=== PATIENT | female | born 1985 | race Caucasian/White ===

== ENCOUNTER 2017-08-02 16:34 | Emergency (ER) | END 2017-08-02 19:13 | disposition left against medical advice (07) ==

== ENCOUNTER 2018-02-18 01:35 | Emergency (ER) | payer MEDICAID ==
[~2018-02-18 01:35] MED LIST: ALBU8.5H8 INH; BACTDS PO; CEPH-443 PO; IBUP-1542 PO; NAPH30DR3 OP; PROM6.25 PO
[2018-02-18] MEDS ORDERED: IBUP-1542 PO (02:22)
[2018-02-18] MEDS ORDERED: CEPH-443 PO (02:22)
[2018-02-18] MEDS ORDERED: SULF1TAB31 PO (02:22)
--- NOTE | 2018-02-18 02:24 | ERD ---
ER Documentation Chief Complaint Chief Complaint Skin lesions. HPI 32-year-old female presents with a 3-4-day history of some skin lesions which are painful. She has one on her left wrist one in the right hip and one on her right anterior knee area. She denies any fevers, vomiting, shortness of breath or chest pain. She has slight amount of discharge from the right knee lesion. ROS All systems reviewed and are negative except as per history of present illness. Medications Home Meds Active Scripts Cephalexin* (Keflex*) 500 Mg Capsule, 500 MG PO QID for 7 Days, CAP Prov:SAMMIE BOYLE MD 02/18/18 Sulfamethoxazole/Trimethoprim* (Bactrim Ds* Tablet) 1 Each Tablet, 1 TAB PO BID, #14 TAB Prov:SAMMIE BOYLE MD 02/18/18 Ibuprofen* (Motrin*) 600 Mg Tab, 600 MG PO Q6, #15 TAB Prov:SAMMIE BOYLE MD 02/18/18 Ibuprofen* (Motrin*) 600 Mg Tab, 600 MG PO Q6, #30 TAB Prov:SYMONE ROBERTSON PA-C 08/02/17 Cephalexin* (Keflex*) 500 Mg Capsule, 500 MG PO QID for 5 Days, CAP Prov:SYMONE ROBERTSON PA-C 08/02/17 Promethazine w/Codeine* (Phenergan w/Codeine* Syrup) 5 Ml Syrup, 5 ML PO Q4H PRN for COUGH, #120 ML Prov:SHARON TONEY PA-C 02/01/15 Albuterol Sulfate* (Proair HFA*) 8.5 Gm Hfa.aer.ad, 2 PUFF INH Q4H PRN for WHEEZING AND SOB, #1 INHALER Prov:SHARON TONEY PA-C 02/01/15 Sulfamethoxazole-Trimethoprim* (Bactrim* DS) 800-160 Mg Tab, 1 TAB PO BID for 10 Days, TAB Prov:MARCY LAM NP 11/28/14 Reported Medications Naphazoline Hcl* (Clear Eyes Redness Relief* 0.1%) 30 Ml Drops, 30 ML OP PRN 12/17/12 Allergies Allergies: Coded Allergies: No Known Drug Allergy (Verified Allergy, Unknown, 08/02/17) PMhx/Soc History of Surgery: Yes (C SECTION ) Anesthesia Reaction: No Hx Neurological Disorder: No Hx Respiratory Disorders: No Hx Cardiac Disorders: No Hx Psychiatric Problems: No Hx Miscellaneous Medical Probl: No Hx Alcohol Use: No Hx Substance Use: No Hx Tobacco Use: No FmHx Family History: No diabetes, No coronary disease, No other Physical Exam Physical Exam Const: No acute distress Head: Atraumatic Eyes: Normal Conjunctiva ENT: Normal External Ears, Nose and Mouth. Neck: Full range of motion. No meningismus. Resp: Clear to auscultation bilaterally Cardio: Regular rate and rhythm, no murmurs Abd: Soft, non tender, non distended. Normal bowel sounds Skin: No petechiae or rashes. Small pustule with surrounding redness on the left wrist and right hip approximately 1 cm. On the right knee there is approximately 2-3 cm area of redness with central pustule some slight drainage and fluctuance. Back: No midline or flank tenderness Ext: No cyanosis, or edema Neur: Awake and alert Psych: Normal Mood and Affect Results 24 hrs Current Medications Medications Dose Sig/Rosaura Start Time Status Last (Trade) Ordered Route PRN Stop Time Admin Dose Reason Admin 1 tab ONCE ONCE 02/18/18 Trimethoprim/ PO 02:30 02/18/18 02:31 Sulfamethoxaz ole (Bactrim (Ds)) Cephalexin 500 mg ONCE ONCE 02/18/18 (Keflex) PO 02:30 02/18/18 02:31 Procedures/MDM She presents with signs and symptoms of early or small abscesses on the left wrist, right hip and right knee consistent with MRSA. There is no signs of necrotizing fasciitis, sepsis, significant cellulitis or abscess to be drained today. Will treat with Bactrim, Keflex, instructions for warm compresses and 3D wound check for evaluation for incision and drainage. Should otherwise return sooner for worsening redness, the patient was stable with no new complaints dur ing the ER course. Clinically, there is no current evidence to suggest meningitis, sepsis, acute abdomen, pneumonia, stroke, acute coronary syndrome, pulmonary embolism, aortic dissection or any other emergent condition appearing to require further evaluation or hospitalization. Patient counseled regarding my diagnostic impression and care plan. Prior to discharge all questions a nswered. Pt agrees with treatment plan and understands strict return precautions. Pt is instructed to follow up with primary care provider within 24- 48 hours. Precautionary instructions provided including instructions to return to the ER if not improving or for any worsening or changing symptoms or concerns. Departure Diagnosis: Primary Impression: Abscess Condition: Stable Patient Instructions: Abscess, Antiobiotic Treatment Only Additional Instructions: Warm compresses at home. Recheck in 2-3 days for worsening redness and swelling for evaluation for incision and drainage. SAMMIE BOYLE MD Feb 18, 2018 02:24
[2018-02-18] MEDS ORDERED: CEPHALEXIN 500 MG CAP PO ONE (02:30)
[2018-02-18] MEDS ORDERED: TRIMETHOPRIM/SULFAMETHOX (DS) TAB PO ONE (02:30)
== END 2018-02-18 03:17 | disposition home or self-care (01) ==
LOC: FTE 01:35
DX: L02.414 Cutaneous abscess of left upper limb (principal)
CPT/HCPCS: Z7502; Z7610; 99283

== ENCOUNTER 2018-02-21 01:40 | Emergency (ER) | payer MEDICAID ==
[~2018-02-21] VITALS: Ht 152.4 cm; Wt 78.8 kg
[~2018-02-21 01:40] MED LIST changes: +SULF1TAB31 PO
[2018-02-21 01:45] VITALS: BP 124/64; PULSE 82; RESP 18; Ht 152.4 cm; Wt 78.8 kg
[2018-02-21] MEDS ORDERED: MUPI22OI2 TOP (02:13)
[2018-02-21] MEDS ORDERED: CLIN300C10 PO (02:13)
--- NOTE | 2018-02-21 02:23 | ERD ---
ER Documentation Chief Complaint Chief Complaint wound recheck on her R lower leg HPI 32-year-old female presenting for wound check to right lower leg. Patient was seen here a few days ago and given antibiotics. She does not have an I&D done at the time. She states that today the wound open and began draining fluid. She denies any fevers. Denies any severe pain. Denies IV drug use. Denies other medical problems. NKDA. Surgical history denies. Social history denies ROS All systems reviewed and are negative except as per history of present illness. Medications Home Meds Active Scripts Mupirocin* (Bactroban*) 2% -22 Gram Oint...g., 1 APPLIC TOP BID for 7 Days, EA Prov:FAMILIA PEREZ PA-C 02/21/18 Clindamycin Hcl* (Clindamycin Hcl*) 300 Mg Capsule, 300 MG PO TID for 10 Days, CAP Prov:FAMILIA PEREZ PA-C 02/21/18 Cephalexin* (Keflex*) 500 Mg Capsule, 500 MG PO QID for 7 Days, CAP Prov:SAMMIE BOYLE MD 02/18/18 Sulfamethoxazole/Trimethoprim* (Bactrim Ds* Tablet) 1 Each Tablet, 1 TAB PO BID, #14 TAB Prov:SAMMIE BOYLE MD 02/18/18 Ibuprofen* (Motrin*) 600 Mg Tab, 600 MG PO Q6, #15 TAB Prov:SAMMIE BOYLE MD 02/18/18 Ibuprofen* (Motrin*) 600 Mg Tab, 600 MG PO Q6, #30 TAB Prov:SYMONE ROBERTSON PA-C 08/02/17 Cephalexin* (Keflex*) 500 Mg Capsule, 500 MG PO QID for 5 Days, CAP Prov:SYMONE ROBERTSON PA-C 08/02/17 Promethazine w/Codeine* (Phenergan w/Codeine* Syrup) 5 Ml Syrup, 5 ML PO Q4H PRN for COUGH, #120 ML Prov:SHARON TONEY PA-C 02/01/15 Albuterol Sulfate* (Proair HFA*) 8.5 Gm Hfa.aer.ad, 2 PUFF INH Q4H PRN for WHEEZING AND SOB, #1 INHALER Prov:MICHELLESHARON Mejia Jaswinder MALDONADO 02/01/15 Sulfamethoxazole-Trimethoprim* (Bactrim* DS) 800-160 Mg Tab, 1 TAB PO BID for 10 Days, TAB Prov:GERMAINCARRIEMARCY Kilpatrick NP 11/28/14 Reported Medications Naphazoline Hcl* (Clear Eyes Redness Relief* 0.1%) 30 Ml Drops, 30 ML OP PRN 12/17/12 Allergies Allergies: Coded Allergies: No Known Drug Allergy (Verified Allergy, Unknown, 08/02/17) PMhx/Soc History of Surgery: Yes (C SECTION ) Anesthesia Reaction: No Hx Neurological Disorder: No Hx Respiratory Disorders: No Hx Cardiac Disorders: No Hx Psychiatric Problems: No Hx Miscellaneous Medical Probl: No Hx Alcohol Use: No Hx Substance Use: No Hx Tobacco Use: No FmHx Family History: No diabetes, No coronary disease, No other Physical Exam Vitals Vital Signs Date Temp Pulse Resp B/P (MAP) Pulse Ox O2 O2 Flow FiO2 Time Delivery Rate 02/21/18 98.1 82 18 124/64 98 01:45 (84) Physical Exam GENERAL: The patient is well-appearing, well-nourished, in no acute distress CHEST: Clear to auscultation bilaterally. There are no rales, wheezes or rhonchi. HEART: Regular rate and rhythm. No murmurs, clicks, rubs or gallops. No S3 or S4. EXTREMITIES: Equal pulses bilaterally. There is no peripheral clubbing, cyanosis or edema. No focal swelling or erythema. Full range of motion. Grossly neurovascularly intact. NEUROLOGIC: Alert and oriented. Motor strength in all 4 extremities with 5 out of 5 strength. SKIN: Draining open abscess noted to right curry. No lymphatic streaking. Mild surrounding erythema. No fluctuance. Procedures/MDM ER course: Site cleaned and Xeroform dressing applied. MDM: 32-year-old female presenting with cellulitis. Patient has abscess that opened and I have low suspicion for deep tracking infection. Patient likely has MRSA infection. I will add additional antibiotic and recommend patient follow- up with primary care. I have low suspicion for lymphangitis. Patient is discharged stricter precautions and told to follow-up with primary care. All questions answered at discharge Departure Diagnosis: Primary Impression: Infected wound Condition: Stable Patient Instructions: Abscess, Antiobiotic Treatment Only Referrals: [facility] YOU HAVE RECEIVED A MEDICAL SCREENING EXAM AND THE RESULTS INDICATE THAT YOU DO NOT HAVE A CONDITION THAT REQUIRES URGENT TREATMENT IN THE EMERGENCY DEPARTMENT. FURTHER EVALUATION AND TREATMENT OF YOUR CONDITION CAN WAIT UNTIL YOU ARE SEEN IN YOUR DOCTORS OFFICE WITHIN THE NEXT 1-2 DAYS. IT IS YOUR RESPONSIBILITY TO MAKE AN APPOINTMENT FOR FOLOW-UP CARE. IF YOU HAVE A PRIMARY DOCTOR --you should call your primary doctor and schedule an appointment IF YOU DO NOT HAVE A PRIMARY DOCTOR YOU CAN CALL OUR PHYSICIAN REFERRAL HOTLINE AT IF YOU CAN NOT AFFORD TO SEE A PHYSICIAN YOU CAN CHOSE FROM THE FOLLOWING [facility] [address] [facility]. [facility] [address] [facility]. [facility] [address] [facility] [address] [facility]. [facility] [address] [facility]. [facility] [address] Additional Instructions: FOLLOW UP WITH YOUR PRIMARY CARE PHYSICIAN TOMORROW.Return to this facility if you are not improving as expected. FAMILIA PEREZ PA-C Feb 21, 2018 02:23
== END 2018-02-21 03:17 | disposition home or self-care (01) ==
LOC: FTE 01:40
DX: L03.115 Cellulitis of right lower limb (principal); L08.9 Local infection of the skin and subcutaneous tissue, unspecified
CPT/HCPCS: 99283

== ENCOUNTER 2018-09-12 21:34 | Emergency (ER) | payer MEDICAID ==
[~2018-09-12] VITALS: Ht 149.9 cm; Wt 75.1 kg
[~2018-09-12 21:34] MED LIST changes: +CLIN300C10 PO; +IBUP800T48 PO; +MUPI22OI2 TOP; +ONDA4TAB14 PO
[2018-09-12 21:36] VITALS: Ht 149.9 cm; Wt 75.1 kg
--- NOTE | 2018-09-12 22:42 | ERD ---
ER Documentation Chief Complaint Chief Complaint right abd pain since yesterday. also c/o vomiting HPI This is a 33-year-old female who presents here in the emergency department with complaints of right lower abdominal pain that started yesterday. Vomited once with nonbilious and nonbloody emesis yesterday. Her last bowel movement was today and it was normal. LMP: August 12, 2018. A0. Denies headache, head injury, loss of consciousness, dizziness, neck pain, neck stiffness, throat pain, difficulty swallowing, difficulty breathing lying flat, shoulder pain, chest pain, back pain, nausea, vomiting, constipation, diarrhea, urinary symptoms, or possibility being , loss of bowel and bladder control, trauma, injury, falls, difficulty walking due to pain, numbness or tingling sensation, calf pain, recent travel, recent major surgery in the last 3 weeks, calf pain, recent long travel, recent exposure to any illness, recent antibiotic use in the last 3 months, fever, chills, seizures. Past medical history: Denies. Surgical history: x1. Social: Denies smoking, use of alcoholic beverages, use of illegal drugs. ROS All systems reviewed and are negative except as per history of present illness. Medications Home Meds Active Scripts Ondansetron (Ondansetron Odt) 4 Mg Tab.rapdis, 4 MG PO Q6H PRN for NAUSEA AND/OR VOMITING, #20 TAB Prov:NOAH PHILLIPS F 09/13/18 Cephalexin* (Keflex*) 500 Mg Capsule, 500 MG PO TID for 7 Days, CAP Prov:KEANUILANOAH APPLE F 09/13/18 Ibuprofen* (Motrin*) 800 Mg Tab, 800 MG PO Q8 PRN for PAIN AND OR ELEVATED TEMP, #30 TAB Prov:KEANUILABANDEBBIAR F 09/13/18 Mupirocin* (Bactroban*) 2% -22 Gram Oint...g., 1 APPLIC TOP BID for 7 Days, EA Prov:FAMILIA PEREZ PA-C 02/21/18 Clindamycin Hcl* (Clindamycin Hcl*) 300 Mg Capsule, 300 MG PO TID for 10 Days, CAP Prov:FAMILIA PEREZ PA-C 02/21/18 Cephalexin* (Keflex*) 500 Mg Capsule, 500 MG PO QID for 7 Days, CAP Prov:SAMMIE BOYLE MD 02/18/18 Sulfamethoxazole/Trimethoprim* (Bactrim Ds* Tablet) 1 Each Tablet, 1 TAB PO BID, #14 TAB Prov:SAMMIE BOYLE MD 02/18/18 Ibuprofen* (Motrin*) 600 Mg Tab, 600 MG PO Q6, #15 TAB Prov:SAMMIE BOYLE MD 02/18/18 Ibuprofen* (Motrin*) 600 Mg Tab, 600 MG PO Q6, #30 TAB Prov:SYMONE ROBERTSON PA-C 08/02/17 Cephalexin* (Keflex*) 500 Mg Capsule, 500 MG PO QID for 5 Days, CAP Prov:SYMONE ROBERTSON PA-C 08/02/17 Promethazine w/Codeine* (Phenergan w/Codeine* Syrup) 5 Ml Syrup, 5 ML PO Q4H PRN for COUGH, #120 ML Prov:SHARON TONEY PA-C 02/01/15 Albuterol Sulfate* (Proair HFA*) 8.5 Gm Hfa.aer.ad, 2 PUFF INH Q4H PRN for WHEEZING AND SOB, #1 INHALER Prov:SHARON TONEY PA-C 02/01/15 Sulfamethoxazole-Trimethoprim* (Bactrim* DS) 800-160 Mg Tab, 1 TAB PO BID for 10 Days, TAB Prov:MARCY LAM NP 11/28/14 Reported Medications Naphazoline Hcl* (Clear Eyes Redness Relief* 0.1%) 30 Ml Drops, 30 ML OP PRN 12/17/12 Allergies Allergies: Coded Allergies: No Known Drug Allergy (Verified Allergy, Unknown, 08/02/17) PMhx/Soc Medical and Surgical Hx: pt denies Medical Hx, pt denies Surgical Hx History of Surgery: Yes ( ) Anesthesia Reaction: No Hx Neurological Disorder: No Hx Respiratory Disorders: No Hx Cardiac Disorders: No Hx Psychiatric Problems: No Hx Miscellaneous Medical Probl: No Hx Alcohol Use: No Hx Substance Use: No Hx Tobacco Use: No Smoking Status: Never smoker Physical Exam Vitals Vital Signs Date Temp Pulse Resp B/P (MAP) Pulse Ox O2 O2 Flow FiO2 Time Delivery Rate 09/13/18 98.4 78 14 122/78 100 Room Air 00:44 (93) 09/12/18 97.4 66 18 123/60 100 21:36 (81) Physical Exam Const: No acute distress Head: Atraumatic Eyes: Normal Conjunctiva. ENT: Normal External Ears, Nose and Mouth. Neck: Full range of motion. No meningismus. Resp: Clear to auscultation bilaterally Cardio: Regular rate and rhythm, no murmurs Abd: Soft, non tender, non distended. Normal bowel sounds. Has suprapubic tenderness to palpation. Negative Robles sign. Negative Dante sign (heel jar test). Negative psoas sign. Negative Rovsing sign. Able to jump 10 times without developing lower abdominal pain. No CVA tenderness. Ambulatory with steady gait and without pain to abdomen. Skin: No petechiae or rashes. Color appears normal for ethnicity. No skin tenting. No signs of severe dehydration. Back: No midline or flank tenderness Ext: No cyanosis, or edema Neur: Awake and alert. No neurological deficits. Psych: Normal Mood and Affect Result Diagram: 09/12/18225709/12/182257 Results 24 hrs Laboratory Tests Test 09/12/18 22:58 09/12/18 22:59 09/12/18 23:09 White Blood Count 10.4 10^3/ul Red Blood Count 5.68 10^6/ul Hemoglobin 10.2 g/dl Hematocrit 33.6 % Mean Corpuscular Volume 59.2 fl Mean Corpuscular Hemoglobin 18.0 pg Mean Corpuscular 30.4 g/dl Hemoglobin Concent Red Cell Distribution Width 21.0 % Platelet Count 332 10^3/UL Mean Platelet Volume 9.5 fl Immature Granulocytes % 0.400 % Neutrophils % 60.4 % Lymphocytes % 30.6 % Monocytes % 6.1 % Eosinophils % 2.0 % Basophils % 0.5 % Nucleated Red Blood Cells % 0.0 /100WBC Immature Granulocytes # 0.040 10^3/ul Neutrophils # 6.3 10^3/ul Lymphocytes # 3.2 10^3/ul Monocytes # 0.6 10^3/ul Eosinophils # 0.2 10^3/ul Basophils # 0.1 10^3/ul Nucleated Red Blood Cells # 0.0 10^3/ul Sodium Level 139 mmol/L Potassium Level 4.0 mmol/L Chloride Level 103 mmol/L Carbon Dioxide Level 29 mmol/L Anion Gap 7 Blood Urea Nitrogen 12 mg/dl Creatinine 0.78 mg/dl Est Glomerular Filtrat > 60 mL/min Rate mL/min Glucose Level 96 mg/dl Calcium Level 9.0 mg/dl Total Bilirubin 0.3 mg/dl Direct Bilirubin 0.00 mg/dl Indirect Bilirubin 0.3 mg/dl Aspartate Amino 21 IU/L Transf (AST/SGOT) Alanine 12 IU/L Aminotransferase (ALT/SGPT) Alkaline Phosphatase 68 IU/L Total Protein 8.1 g/dl Albumin 4.0 g/dl Globulin 4.10 g/dl Albumin/Globulin Ratio 0.97 Amylase Level 116 U/L Lipase 75 U/L Urine Color YELLOW Urine Clarity CLOUDY Urine pH 6.0 Urine Specific [place] 1.019 Urine Ketones NEGATIVE mg/dL Urine Nitrite NEGATIVE mg/dL Urine Bilirubin NEGATIVE mg/dL Urine Urobilinogen NEGATIVE mg/dL Urine Leukocyte Esterase 3+ Eyad/ul Urine Microscopic RBC 8 /HPF Urine Microscopic WBC 55 /HPF Urine Squamous Epithelial Cells MODERATE /HPF Urine Amorphous Crystals FEW /HPF Urine Bacteria FEW /HPF Urine Mucus FEW /HPF Urine Hemoglobin 2+ mg/dL Urine Glucose NEGATIVE mg/dL Urine Total Protein NEGATIVE mg/dl POC Beta HCG, Qualitative NEGATIVE Current Medications Medications Dose Sig/Rosaura Start Time Status Last (Trade) Ordered Route PRN Stop Time Admin Dose Reason Admin Ibuprofen 800 mg ONCE ONCE 09/13/18 DC (Motrin) PO 00:30 09/13/18 00:31 Ondansetron 4 mg ONCE STAT 09/13/18 DC HCl (Zofran ODT 00:21 Odt) 09/13/18 00:22 Cephalexin 500 mg ONCE ONCE 09/13/18 DC (Keflex) PO 00:30 09/13/18 00:31 Procedures/MDM Diagnostic tests: POC urine : Negative. Urinalysis: UTI. Culture urine: Sent. Blood works: Reviewed. Ultrasound of the pelvis: No abnormality seen. Treatment: Motrin. Zofran. Keflex. Re-evaluation: No episode of emesis here in the emergency department. Negative Robles sign but negative Joshua sign (heel jar test). Negative psoas sign. Negative Rovsing sign. No CVA tenderness. Able to jump 10 times without developing lower abdominal pain. Stated that she feels much better at this time and that she is ready to go home. Stated that she is comfortable to go home. Differential diagnosis I have low suspicion for sepsis, pancreatitis, cholecystitis, diverticulitis, bowel obstruction, appendicitis, nephrolithiasis, pyelonephritis, obstructing kidney stones, septic stones, ovarian torsion, ovarian cyst rupture. Final diagnosis: UTI. Prescription: Keflex. Motrin. Zofran. Follow-up with PCP in the next 24-48 hours. Come back in 8 to 12 hours for recheck of GI symptoms. Come back here in the emergency department for any new symptoms or any worsening symptoms. All questions and concerns were answered. Patient and family members verbalized understanding and agreed with plan of care. Hemodynamically stable on discharge. Departure Diagnosis: Primary Impression: UTI (urinary tract infection) Additional Impression: Pelvic pain Condition: Stable Additional Instructions: Follow-up with PCP in the next 24-48 hours. Come back in 8 to 12 hours for recheck of GI symptoms. Come back here in the emergency department for any new symptoms or any worsening symptoms. NOAH PHILLIPS Sep 12, 2018 22:42
[2018-09-13] MEDS ORDERED: ONDANSETRON (ODT) 4 MG TAB ODT STA (00:21)
[2018-09-13] MEDS ORDERED: CEPHALEXIN 500 MG CAP PO ONE (00:30)
[2018-09-13] MEDS ORDERED: IBUPROFEN 800 MG TAB PO ONE (00:30)
[2018-09-13 00:44] VITALS: BP 122/78; PULSE 78; RESP 14
== END 2018-09-13 00:45 | disposition home or self-care (01) ==
LOC: FTE 21:34
DX: N39.0 Urinary tract infection, site not specified (principal); R10.2 Pelvic and perineal pain
CPT/HCPCS: 76856; 80053; 81001; 81025; 82150; 83690; 85025; 87086; Z7502